=== PATIENT | female | born 1980 | race African-American/Black ===

== ENCOUNTER 2016-06-11 06:05 | Day surgery (SDC) | payer BC ==
[2016-06-09 08:06] LABS: BASOPHILS 0.5 %; BASOPHILS ABSOLUTE 0.03 10/3/uL (0.0-0.16); EOSINOPHILS 0.8 %; EOSINOPHILS ABSOLUTE 0.05 10/3/uL (0.0-0.53); HEMATOCRIT 41.2 % (36.0-48.0); HEMOGLOBIN 13.4 g/dL (12.0-16.0); IMMATURE GRANULOCYTES 0.2 %; IMMATURE GRANULOCYTES ABSOLUTE 0.01 10/3/uL (0.0-0.11); LYMPHOCYTES 48.9 %; LYMPHOCYTES ABSOLUTE 3.19 10/3/uL (0.67-4.30); MEAN CORPUS HGB CONC 32.5 g/dL (32.0-36.0); MEAN CORPUSCULAR HEMOGLOB 23.1 pg (26.0-34.0); MEAN CORPUSCULAR VOLUME 70.9 fL (80-100); MEAN PLATELET VOLUME 10.9 fL (9.2-13.0); MONOCYTES ABSOLUTE 0.39 10/3/uL (0.21-1.20); NEUTROPHILS 43.6 %; NEUTROPHILS ABSOLUTE 2.85 10/3/uL (2.02-8.40); PLATELET COUNT 261 10/3/uL (150-400); RBC DISTRIBUTION WIDTH 16.1 % (12.0-16.0); RED CELL COUNT 5.81 10/6/uL (4.0-5.6); WHITE BLOOD CELLS 6.5 10/3/uL (4.5-10.5)
[2016-06-09 08:10] LABS: MANUAL DIFF NO %
[2016-06-09 08:29] LABS: A/G RATIO 0.9 (0.7-1.9); ALBUMIN 3.4 G/DL (3.5-5.0); ALKALINE PHOSPHATASE 99 U/L (45-117); BUN (BLOOD UREA NITROGEN) 6 MG/DL (6-23); CALCIUM, SERUM 9.6 MG/DL (8.5-10.4); CHLORIDE, SERUM 108 MMOL/L (96-112); CO2 (CARBON DIOXIDE) 25 MMOL/L (24-34); CREATININE 0.91 MG/DL (0.55-1.02); GFR AFRICAN AMERICAN 93 ML/MIN (>=60); GFR NON AFRICAN AMERICAN 81 ML/MIN (>=60); GLOBULIN 3.9 G/DL (2.5-4.1); GLUCOSE, SERUM 100 MG/DL (60-99); POTASSIUM, SERUM 4.2 MMOL/L (3.5-5.3); SGOT(AST) 16 U/L (5-40); SGPT(ALT) 34 U/L (5-65); SODIUM, SERUM 144 MMOL/L (135-148); TOTAL BILIRUBIN 0.5 MG/DL (0-1.2); TOTAL PROTEIN 7.3 G/DL (6.0-8.5)
--- NOTE | ~2016-06-11 | PREOPHP ---
PreOp History and Physical [id number] [place]. [address] NAME: ASHLI GUAMAN : 76 STATUS : [facility]#: [id number] AGE: 35 ADM/REG DATE : 06/11/16 MR#: [id number] REPORT SERV DATE: 06/13/16 DICTATED BY: EDY GONZALEZ III DATE: 06/05/16 REPORT STATUS : Draft TRANSCRIBED BY: LILIYA DATE: 06/05/16 HISTORY OF PRESENT ILLNESS: This 35-year-old female comes to the operating room for laparoscopic cholecystectomy, possible laparotomy, for symptomatic cholelithiasis and cholecystitis. The patient complains of intermittent episodes of upper abdominal pain. This pain is associated with indigestion and bloating. These symptoms began about five months ago. The patient has gallstones and felt to have symptomatic cholelithiasis and cholecystitis. The patient comes to the operating room now for laparoscopic cholecystectomy, possible laparotomy. PAST MEDICAL HISTORY: Unremarkable. MEDICATIONS: Robaxin, Wellbutrin. ALLERGIES: NONE. PAST SURGICAL HISTORY: Includes hysterectomy and oophorectomy. FAMILY HISTORY: Positive for gastric cancer, diabetes. SOCIAL HISTORY: No history of tobacco use. The patient has occasional history of alcohol use. REVIEW OF SYSTEMS: The patient complains of fatigue and vomiting at times. Her 14-point review of systems otherwise unremarkable. PHYSICAL EXAMINATION: GENERAL: Obese female, in no acute distress. She is alert and oriented x3. VITAL SIGNS: Blood pressure 126/78, pulse 68, temperature 98.6. HEENT: Unremarkable. Cranial nerves 2 through 12 are normal. LUNGS: Clear. CARDIAC: Normal. ABDOMEN: Soft with some right upper quadrant tenderness. EXTREMITIES: Normal. LABORATORY: Gallbladder ultrasound confirms gallstones. ASSESSMENT: 1. A 35-year-old female with symptomatic cholelithiasis and cholecystitis. 2. Obesity. PLAN: The patient comes to the operating room now for laparoscopic cholecystectomy, possible laparotomy. This procedure, the risks, benefits, and alternatives, including but not limited to, the risk for bleeding, infection, common bile duct injury, bile leak, retained common bile stone, enterotomy, or injury to any abdominal structure, the definite possible need for laparotomy and the possible persistence of her symptoms unrelieved by surgery, possibility of postoperative diarrhea or incisional hernia, and unforeseen complications PreOp History and Physical [address] [place]. [address] NAME: ASHLI GUAMAN : 76 STATUS : [facility]#: [id number] AGE: 35 ADM/REG DATE : 06/11/16 MR#: [id number] REPORT SERV DATE: 06/13/16 DICTATED BY: EDY GONZALEZ III DATE: 06/05/16 REPORT STATUS : Draft TRANSCRIBED BY: LILIYA DATE: 06/05/16 including deep venous thrombosis, pulmonary embolus, myocardial infarction, stroke, pneumonia, and , have been fully and completely explained to the patient at length prior to surgery. The fact that this is a major operation with risk for major morbidity and mortality, and no guarantee for relief of her symptoms were explained. The expected length of recovery with open laparoscopic procedures has been explained. The patient had questions, which were answered. She clearly understands the risks and agrees to surgery as planned. SANDEEP/LILIYA Edy Gonzalez III, M.D. / [id number]
--- NOTE | ~2016-06-11 | OP ---
Record Of Operation [facility] [address] [place]. [address] NAME: ASHLI GUAMAN : 76 STATUS : [facility]#: [id number] AGE: 35 ADM/REG DATE : 06/11/16 MR#: [id number] REPORT SERV DATE: 06/11/16 DICTATED BY: EDY GONZALEZ III DATE: 06/11/16 REPORT STATUS : Draft TRANSCRIBED BY: MODKsenia DATE: 06/11/16 DATE OF PROCEDURE: 06/11/2016 PREOPERATIVE DIAGNOSIS: Symptomatic cholelithiasis and cholecystitis. POSTOPERATIVE DIAGNOSIS: Symptomatic cholelithiasis and cholecystitis, severe chronic cholecystitis and cholelithiasis. PROCEDURE: Laparoscopic cholecystectomy. SURGEON: Edy Gonzalez M.D. ANESTHESIA: General with intubation. COMPLICATIONS: None. ESTIMATED BLOOD LOSS: Less than 30 mL. SPECIMENS: Gallbladder. DRAINS: None. LAP AND SPONGE COUNT: Correct x3. BRIEF HISTORY: This 35-year-old female presented with evidence for symptomatic cholelithiasis and cholecystitis. It was felt that a laparoscopic cholecystectomy, possible laparotomy, was indicated. This procedure, the risks, benefits, and alternatives, including but not limited to the risk for bleeding, infection, common bile duct injury, bile leak, retained common bile stone, enterotomy, or injury to any abdominal structure, the definite possible need for laparotomy, possible persistence of her symptoms unrelieved by surgery, possibility of postoperative diarrhea or incisional hernia, and unforeseen complications including deep venous thrombosis, pulmonary embolus, myocardial infarction, stroke, pneumonia, and , were fully and completely explained to the patient and family at length prior to surgery. The fact that this was a major operation with risk for major morbidity and mortality, no guarantee for relief her symptoms was explained to her and her family. The length of recovery with both open laparoscopic procedures was explained. The patient had questions, which were answered. She fully understood the risks and agreed to surgery as planned. FINDINGS: The patient had an extremely diseased gallbladder. The gallbladder was massively dilated and distended and the lu were thickened and inflamed with dense adhesions between the omentum and the gallbladder, all consistent with severe cholecystitis. The gallbladder was some twice the normal length and size because of what appeared to be obstruction at the cystic duct. There were small stones obstructed in the cystic duct. The stones were carefully milked back into the gallbladder before dividing the cystic duct. Record Of Operation [facility] [address] [place]. [address] NAME: ASHLI GUAMAN : 76 STATUS : [facility] PAT#: [id number] AGE: 35 ADM/REG DATE : 06/11/16 MR#: [id number] REPORT SERV DATE: 06/11/16 DICTATED BY: EDY GONZALEZ III DATE: 06/11/16 REPORT STATUS : Draft TRANSCRIBED BY: LILIYA DATE: 06/11/16 PROCEDURE IN DETAIL: After being appropriately identified and after discussing the risks of surgery with the patient and her family in the preoperative area, the patient was taken to the operating room and placed in the supine position on the operating room table. General anesthesia was administered. She was intubated without difficulty. The abdomen was prepped and draped sterilely in the usual fashion. After an appropriate "time-out" per [employer] standards, a small transverse incision was made below the umbilicus. The skin and fascia on either side was elevated with towel clips. A Veress needle was placed through the incision into the peritoneal cavity. Correct position of the needle in the peritoneal cavity was confirmed by the hanging drop test. The abdominal cavity was then insufflated to about 13 mmHg with carbon dioxide. Correct position of air in the peritoneal cavity was confirmed by palpation. The Veress needle was removed and replaced with 10 mm trocar. The laparoscope was placed through this. The patient was placed in the reverse Trendelenburg position and to her left. A second 10 mm trocar was placed just below the xiphoid process, to the right of the falciform ligament, under direct vision with the laparoscope. Two 5 mm trocars were placed along the right subcostal margin, one in the midaxillary line, the other in the midclavicular line. These were also placed under direct vision with the laparoscope. The upper abdomen was inspected. The gallbladder appeared to be chronically diseased. The gallbladder lu were thickened and inflamed consistent chronic cholecystitis. The liver and remainder of the upper abdomen were otherwise unremarkable as far as we could determine through the laparoscope. The appropriate instruments were placed through the trocars. The gallbladder was grasped and the infundibulum of the gallbladder was retracted laterally and inferiorly so as to expose the triangle of Calot. Using careful sharp and blunt dissection, the cystic duct was carefully and meticulously defined proximally and distally. The cystic duct was fairly long. The junction of the cystic duct with the common bile duct was appreciated, but not skeletonized. The cystic artery was similarly defined proximally and distally. The fibrous and fatty tissue between these structures was divided so as to clearly identify the critical angle. Once these structures were clearly defined, the cystic duct was clipped using two clips on the common bile duct side and one on the gallbladder side, all placed as close to the gallbladder as possible, taking care not encroach upon or injure the common bile duct in any way. The cystic duct was then divided between these clips as close to the gallbladder as possible. We elected not to perform a cholangiogram because there was no preoperative or intraoperative evidence for biliary dilatation and because the patient's preoperative liver enzymes were normal and because her biliary anatomy was clearly defined. Again, the structure was not divided or clipped until the critical angle and triangle of Calot had been clearly identified. The cystic artery was then similarly clipped and divided as close to the gallbladder as possible. Using the spatula and the cautery, the gallbladder was carefully dissected from the liver bed. This went very well. Before the gallbladder was completely removed, the gallbladder bed and portal areas were irrigated numerous times with saline. The saline was aspirated dry. This process was repeated several times until hemostasis was meticulously and thoroughly assured in all areas. It was also assured that the clips in the portal areas were in good position and there was no extravasation of bile from any accessory bile duct. Once this was assured, the gallbladder was completely dissected away from the liver and placed in the Endopouch. The liver bed was elevated, irrigated, and inspected for meticulous and thorough hemostasis and for absence of any biliary extravasation and to be certain that the clips were in good position. Once this was assured, the gallbladder and Endopouch were brought out through the Record Of Operation [address] [place]. [address] NAME: ASHLI GUAMAN : 76 STATUS : [facility]#: [id number] AGE: 35 ADM/REG DATE : 06/11/16 MR#: [id number] REPORT SERV DATE: 06/11/16 DICTATED BY: EDY GONZALEZ III DATE: 06/11/16 REPORT STATUS : Draft TRANSCRIBED BY: MODKsenia DATE: 06/11/16 infraumbilical incision and placed in the laparoscope through the subxiphoid port. The fascia of the infraumbilical incision was closed with 0 Vicryl suture. The lateral two trocars were removed. These two lower trocar sites were inspected on the underside for hemostasis with the laparoscope. Once this was assured, the subxiphoid trocar was removed under direct vision with the laparoscope to assure hemostasis in this incision. The air was removed from the peritoneal cavity through this incision. The skin incisions were inspected for hemostasis, they were closed with running subcuticular 4-0 Monocryl stitches. They were injected with one-half percent Marcaine. Dressings were applied. Anesthesia was reversed and the patient was taken to the recovery room in stable condition. The patient tolerated the procedure well. Her family was informed of the results of surgery. The patient will be discharged later when she is stable, comfortable and tolerating liquids and able to void and ambulate. Her family was advised that she should remain on a liquid diet today and advance this as tolerated to a regular diet tomorrow. She should keep wounds clean and dry for 48 hours and that she should not drive for 3 to 4 days after surgery or while using narcotics or Phenergan. They were advised that she should resume her usual medications. She was given a prescription for a narcotic and Phenergan, which she was advised to not take while driving. She was asked to return to the office in two weeks for followup or sooner for nausea, vomiting, fever, chills, wound drainage, abdominal pain, weakness, or other problems prior to that time. RHBrett/LILIYA Edy Gonzalez III, M.D. / [id number] CC: Eladia Huerta III, M.D.
[~2016-06-11 06:05] MED LIST: EEMT PO; METHOC500B PO; WELLXL150 PO
[2016-06-11 11:42] LABS: HEMATOCRIT 40.7 % (36.0-48.0)
== END 2016-06-11 11:57 | disposition home or self-care (01) ==
LOC: SDC 06:05
PROVIDERS: Surgery
PROC: 0FT44ZZ Resection of Gallbladder, Percutaneous Endoscopic Approach (ICD-10-PCS; principal; 2016-06-11 07:45)
DX: K80.10 Calculus of gallbladder with chronic cholecystitis without obstruction (principal); Z90.710 Acquired absence of both cervix and uterus; Z90.721 Acquired absence of ovaries, unilateral; Z83.3 Family history of diabetes mellitus; Z80.0 Family history of malignant neoplasm of digestive organs
CPT/HCPCS: 71020; 80053; 85014; 85018; 85025; 88304; 93005; J0690; J1170; J1885; J2175; J2250; J2405; J2550; J2710; J3010